=== PATIENT | female | born 1985 | race Caucasian/White ===

== ENCOUNTER 2017-11-29 05:13 | Emergency (ER) | payer OTHER ==
[~2017-11-29] VITALS: Ht 165.1 cm; Wt 65.8 kg
[2017-11-29] MEDS ORDERED: VYVANSE20 MG (05:23)
[2017-11-29 05:33] LABS: URINE CLARITY SL CLOUDY; URINE COLOR ORANGE; URINE LEUKOCYTES-REFLEX NEGATIVE (Negative); URINE SPECIFIC GRAVITY >= 1.030 (1.005-1.030)
[2017-11-29 05:35] LABS: ICTOTEST (BILI CONFIRMATORY) Negative (Negative); URINE BILIRUBIN ND (Negative); URINE GLUCOSE-RANDOM ND (Negative); URINE REDUCING SUBSTANCE NEGATIVE (Negative)
[2017-11-29 05:36] LABS: ACETEST (KETONE CONFIRMATORY) Negative (Negative); URINE BLOOD ND (Negative); URINE KETONES ND (Negative); URINE NITRITE-REFLEX ND (Negative); URINE UROBILINOGEN ND E.U./dl (0.2-1.0)
[2017-11-29 05:40] LABS: SSA (PROTEIN CONFIRMATORY) TRACE (APPROX. 5) mg/dL (Negative); URINE PROTEIN ND (Negative)
[2017-11-29 05:41] LABS: SQUAMOUS 4-10 Moderate /LPF (0-3)
[2017-11-29 05:42] LABS: CASTS None Seen /LPF (None Seen); CRYSTALS None Seen /LPF (None Seen); MUCUS 4-6 Moderate strn/LPF (None Seen); URINE WBC-REFLEX 6-15 Few /HPF (0-5)
[2017-11-29] MEDS ORDERED: BACTRIM DS TAB1 EACH PO (05:51)
[2017-11-29] MEDS ORDERED: TRAMADOL 50 MG50 MG PO (05:51)
[2017-11-29 05:56] VITALS: BP 113/70
== END 2017-11-29 05:57 | disposition home or self-care (01) ==
LOC: M.ERS 05:13
PROVIDERS: Emergency Medicine
DX: N39.0 Urinary tract infection, site not specified (principal); Z90.49 Acquired absence of other specified parts of digestive tract; Z98.890 Other specified postprocedural states; Z88.7 Allergy status to serum and vaccine